=== PATIENT | female | born 1940 | race Caucasian/White ===

== ENCOUNTER → 2019-03-18 | Outpatient (CLI) | payer MEDICARE ==
[2019-03-18 14:13] LABS: ABSOLUTE EOSINOPHILS # (AUTO) 0.2 10^3/uL (0.0-0.6); ABSOLUTE LYMPHOCYTES (AUTO) 1.7 10^3/uL (0.5-4.7); ABSOLUTE MONOCYTES (AUTO) 0.5 10^3/uL (0.1-1.4); ABSOLUTE NEUT (AUTO) 3.8 10^3/uL (1.7-8.2); BASOPHILS % (AUTO) 0.8 % (0-2); EOSINOPHILS % (AUTO) 3.2 % (0-6); HEMATOCRIT 35.7 % (36.0-47.0); HEMOGLOBIN 11.9 g/dL (12.0-15.5); LYMPHOCYTES % (AUTO) 27.6 % (13-45); MEAN CORPUSCULAR HEMOGLOBIN 29.1 pg (27.0-33.4); MEAN CORPUSCULAR HGB CONC 33.3 g/dL (32.0-36.0); MEAN CORPUSCULAR VOLUME 87 fl (80-97); PLATELET COUNT 275 10^3/uL (150-450); RED BLOOD COUNT 4.09 10^6/uL (3.72-5.28); RED CELL DISTRIBUTION WIDTH 15.6 % (11.5-14.0); SEGMENTED NEUTROPHILS % (AUTO) 60.4 % (42-78); TOTAL CELLS COUNTED % (AUTO) 100 %; WHITE BLOOD COUNT 6.3 10^3/uL (4.0-10.5)
[2019-03-18 14:19] LABS: APPEARANCE,URINE CLEAR; BILIRUBIN,URINE NEGATIVE (NEGATIVE); COLOR,URINE YELLOW; GLUCOSE, URINE NEGATIVE (NEGATIVE); KETONES,URINE NEGATIVE (NEGATIVE); LEUKOCYTE ESTERASE,URINE TRACE (NEGATIVE); NITRITE,URINE NEGATIVE (NEGATIVE); PROTEIN,URINE NEGATIVE (NEGATIVE); URINE SPECIFIC GRAVITY 1.015; UROBILINOGEN,URINE NEGATIVE mg/dL (<2.0)
--- NOTE | 2019-03-18 14:47 | RADIOLOGY REPORT (SQ) ---
EXAM DESCRIPTION: CHEST PA/LATERAL COMPLETED DATE/TIME: 03/18/2019 1:48 pm REASON FOR STUDY: PRE-OP COMPARISON: None. EXAM PARAMETERS: NUMBER OF VIEWS: two views TECHNIQUE: Digital Frontal and Lateral radiographic views of the chest acquired. RADIATION DOSE: NA LIMITATIONS: none FINDINGS: LUNGS AND PLEURA: No opacities, masses or pneumothorax. No pleural effusion. MEDIASTINUM AND HILAR STRUCTURES: No masses or contour abnormalities. HEART AND VASCULAR STRUCTURES: The heart size is borderline. There is no pulmonary edema. BONES: Old right rib fractures. HARDWARE: Surgical clips. OTHER: No other significant finding. IMPRESSION: Borderline heart size without pulmonary edema. Old rib fractures. No acute finding. TECHNICAL DOCUMENTATION: JOB ID: [id number] [employer]- All Rights Reserved Reading location - IP/workstation name: [email or web address]
[2019-03-18 14:53] LABS: ANION GAP 11 (5-19); BLOOD UREA NITROGEN 17 mg/dL (7-20); CALCIUM 9.5 mg/dL (8.4-10.2); CARBON DIOXIDE 26 mmol/L (22-30); CHLORIDE 99 mmol/L (98-107); GLUCOSE 87 mg/dL (75-110)
--- NOTE | 2019-03-18 16:00 | EKG REPORT ---
SEVERITY:- ABNORMAL ECG - SINUS RHYTHM PROBABLE LEFT ATRIAL ABNORMALITY BORDERLINE LEFT AXIS DEVIATION NONSPECIFIC T ABNORMALITIES, ANTERIOR LEADS : Confirmed by: Sekou Mcnally MD 18-Mar-2019 15:59:13
== END ==
LOC: OD 12:58
PROVIDERS: ATTEND Orthopaedic Surgery
DX: Z01.810 Encounter for preprocedural cardiovascular examination (principal); Z01.811 Encounter for preprocedural respiratory examination; Z01.812 Encounter for preprocedural laboratory examination; M16.11 Unilateral primary osteoarthritis, right hip
CPT/HCPCS: 36415; 71046; 80048; 81001; 85025; 93005; 93010

== ENCOUNTER 2019-04-15 05:57 | Inpatient (IN) | payer MEDICARE ==
[~2019-04-15 05:57] MED LIST: BUPIVACAINE INJ/PF LIPOSOME/PF 266 MG/20 ML SDV INJ PRN; CEFAZOLIN INJ 1 GM VIAL IV PRN; IBUPROFEN 800 MG in NORMAL SALINE 250 ML IV PRN; LACTATED RINGERS 1000 ML IV PRN; LIDOCAINE 0.5% INJ-PF (5 MG/ML) 50 ML SDV SUBCUT PRN; OXYCODONE HCL SR 10 MG TABLET PO PRN; PANTOPRAZOLE SODIUM 20 MG TABLET.DR PO PRN; VANCOMYCIN HCL 1,000 MG in DEXTROSE 5%-WATER 250 ML IV PRN
[2019-04-15] MEDS ORDERED: CEFAZOLIN 1 GM/D5W RTU 1 GM/50 ML RTUPB IV ONE (09:57)
[2019-04-15] MEDS ORDERED: PANTOPRAZOLE SODIUM 20 MG TABLET.DR PO ONE (09:57)
[2019-04-15] MEDS ORDERED: OXYCODONE HCL SR 10 MG TABLET PO ONE ×2 (09:57→20:40)
[2019-04-15] MEDS ORDERED: BUPIVACAINE INJ/PF LIPOSOME/PF 266 MG/20 ML SDV ONE (11:12)
[2019-04-15] MEDS ORDERED: MIDAZOLAM 2 MG/2 ML INJ ONE (12:02)
[2019-04-15] MEDS ORDERED: PROPOFOL INJ 200 MG/20 ML VIAL IV ONE (12:02)
[2019-04-15] MEDS ORDERED: DEXMEDETOMIDINE INJ 80 MCG/20 ML VIAL IV ONE (12:02)
[2019-04-15] MEDS ORDERED: TRANEXAMIC ACID INJ/PF 1,000 MG/10 ML SDV ONE (12:45)
[2019-04-15] MEDS ORDERED: MEPERIDINE HCL/PF INJ 25 MG/1 ML DISP.SYRIN IV PRN (13:56)
[2019-04-15] MEDS ORDERED: FENTANYL CITRATE INJ/PF 100 MCG/2 ML AMPUL IV PRN ×3 (13:56)
[2019-04-15] MEDS ORDERED: PROMETHAZINE HCL INJ 25 MG/1 ML VIAL IV PRN ×2 (13:56)
[2019-04-15] MEDS ORDERED: DIPHENHYDRAMINE HCL 50 MG/ML VIAL IV PRN ×2 (13:56→14:22)
[2019-04-15] MEDS ORDERED: MORPHINE SULFATE 10 MG/ML INJ IV PRN (13:56)
[2019-04-15] MEDS ORDERED: RINGERS SOLUTION,LACTATED 1,000 ML IV PRN (14:22)
[2019-04-15] MEDS ORDERED: ONDANSETRON 4 MG TAB.RAPDIS PO PRN (14:22)
[2019-04-15] MEDS ORDERED: ZOLPIDEM TARTRATE 5 MG TABLET PO PRN (14:22)
[2019-04-15] MEDS ORDERED: MAG HYDROX/AL HYDROX/SIMETH SUSP 30 ML UDCUP PO PRN (14:22)
[2019-04-15] MEDS ORDERED: ONDANSETRON HCL INJ/PF 4 MG/2 ML SDV IV PRN (14:22)
--- NOTE | 2019-04-15 14:22 | Operative Report ---
Operative Report DATE OF SURGERY: 04/15/19 PREOPERATIVE DIAGNOSIS: Right knee arthritis OPERATION: Right knee arthroplasty SURGEON: SIGRID RODRIGUEZ ANESTHESIA: Spinal TISSUE REMOVED OR ALTERED: Bone to pathology ESTIMATED BLOOD LOSS: [place] 5 PROCEDURE: Implants used: Femur: Alma Delia triathlon size 5 CR femur Tibia: 4 tibia Tibial liner: 16 mm CS insert Patella: 35 mm oval patella Procedure with the patient supine on the operating table the right the limb is prepped and draped in a sterile fashion. The limb was elevated for exsanguination and the tourniquet inflated to 280 torr. A standard midline median parapatellar approach the knee is taken. Access is gained to the femoral canal through the intercondylar notch. Intramedullary alignment instrumentation used to resect 10 mm of distal femur in 5 of valgus. Sizing guide indicated a size 5 femur. Appropriate cutting jig is then used to fashion anterior posterior and chamfer cuts. A trial reduction femurs performed and this is judged to be adequate. Attention was next turned to the tibia. Using an extra medullary alignment system two millimeters was resected off the medial tibial plateau has a varus knee and a large tibial plateau defect medially. This is sized to a size 4 tibia. A trial reduction was now performed with a 5 femur and a 4 tibia using a 16 millimeters spacer. It is full extension and central patellofemoral tracking. The articular surface the patella was next resected using an oscillating saw. All trial implants were removed. Polymethylmethacrylate is mixed and used to cement the above implants in place. On adequate curing the cement excess cement was removed the tourniquet was deflated hemostasis obtained the wound is then closed in layers using interrupted Vicryl followed by maegan. A sterile compressive dressing was applied and the patient returned to recovery room in satisfactory condition.
--- NOTE | 2019-04-15 15:15 | RADIOLOGY REPORT (SQ) ---
EXAM DESCRIPTION: KNEE RIGHT 2 VIEWS COMPLETED DATE/TIME: 04/15/2019 2:56 pm REASON FOR STUDY: Post OP -Long Cassette in PACU M17.11 UNILATERAL PRIMARY OSTEOARTHRITIS, RIGHT KN EE COMPARISON: None. NUMBER OF VIEWS: Two views. TECHNIQUE: AP and lateral radiographic images acquired of the right knee. LIMITATIONS: None. FINDINGS: MINERALIZATION: Normal. BONES: Status post TKA. The hardware is in anatomic alignment. There is no periprosthetic fracture. JOINT: The subcutaneous and intra-articular emphysema are expected in the immediate postoperative per iod. SOFT TISSUES: As above. OTHER: Surgical maegan. IMPRESSION: Uncomplicated right TKA hardware with expected immediate postoperative findings. TECHNICAL DOCUMENTATION: JOB ID: [id number] 2010 [employer]- All Rights Reserved Reading location - IP/workstation name: [email or web address]
[2019-04-15] MEDS ORDERED: TRANEXAMIC ACID INJ/PF 1,000 MG/10 ML SDV IV ONE ×2 (16:00→18:45)
[2019-04-15] MEDS ORDERED: DEXTROSE 40% GEL 15 GM TUBE X 2 PO PRN (17:30)
[2019-04-15] MEDS ORDERED: DEXTROSE 40% GEL 15 GM TUBE PO PRN (17:30)
[2019-04-15] MEDS ORDERED: GLUCAGON,HUMAN RECOMB 1 MG INJ IM PRN (17:30)
[2019-04-15] MEDS ORDERED: DEXTROSE 50%-WATER SYRINGE 25 GM/50 ML DOSE IV PRN (17:30)
[2019-04-15] MEDS ORDERED: DEXTROSE 50%-WATER SYRINGE 12.5 GM/25 ML DOSE IV PRN (17:30)
[2019-04-15] MEDS: SENNOSIDES/DOCUSATE 8.6-50 MG 1 EACH TABLET PO SCH (18:14)
[2019-04-15] MEDS: OXYCODONE HCL SR 10 MG TABLET PO SCH (21:00)
[2019-04-15] MEDS: INSULIN LISPRO 100 UNIT/ML 3 ML VIAL SUBCUT SCH (21:09)
[2019-04-15] MEDS: IBUPROFEN 800 MG in NORMAL SALINE 250 ML IV SCH (21:16)
[2019-04-16] MEDS ORDERED: VANCOMYCIN HCL 1,000 MG in DEXTROSE 5%-WATER 250 ML IV ONE (02:30)
[2019-04-16] MEDS: OXYCODONE HCL IR 5 MG TABLET PO PRN ×2 (04:32→16:05)
[2019-04-16 05:27] LABS: HEMATOCRIT 29.4 % (36.0-47.0); HEMOGLOBIN 9.9 g/dL (12.0-15.5); MEAN CORPUSCULAR HEMOGLOBIN 29.4 pg (27.0-33.4); MEAN CORPUSCULAR HGB CONC 33.7 g/dL (32.0-36.0); MEAN CORPUSCULAR VOLUME 87 fl (80-97); PLATELET COUNT 202 10^3/uL (150-450); RED BLOOD COUNT 3.36 10^6/uL (3.72-5.28); RED CELL DISTRIBUTION WIDTH 14.8 % (11.5-14.0); WHITE BLOOD COUNT 6.5 10^3/uL (4.0-10.5)
[2019-04-16] MEDS: IBUPROFEN 800 MG in NORMAL SALINE 250 ML IV SCH ×3 (05:55→21:32)
[2019-04-16] MEDS: PANTOPRAZOLE SODIUM 40 MG TABLET.DR PO SCH (05:55)
[2019-04-16 05:59] LABS: ANION GAP 7 (5-19); BLOOD UREA NITROGEN 13 mg/dL (7-20); CALCIUM 8.2 mg/dL (8.4-10.2); CARBON DIOXIDE 26 mmol/L (22-30); CHLORIDE 101 mmol/L (98-107); GLUCOSE 111 mg/dL (75-110); POTASSIUM 3.8 mmol/L (3.6-5.0)
--- NOTE | 2019-04-16 07:17 | PDOC PROGRESS REPORT ---
Subjective Progress Note for:: 04/16/19 Reason For Visit: RIGHT KNEE ARTHRITIS 78-year-old white female now postop day 1 status post right knee arthroplasty. Uneventful postoperative course except with complaints of pain. Physical Exam Vital Signs: Temp Pulse Resp BP Pulse Ox 36.7 C 74 16 109/53 L 96 04/15/19 23:27 04/15/19 23:27 04/15/19 23:27 04/15/19 23:27 04/15/19 23:27 Intake & Output 04/15/19 04/16/19 04/17/19 06:59 06:59 06:59 Intake Total 5579 Output Total 3609 Balance 1970 Weight 74.3 kg Physical Exam: Patient is alert, oriented, appropriate. General appearance: PRESENT: mild distress Head exam: PRESENT: normocephalic Respiratory exam: PRESENT: unlabored Cardiovascular exam: PRESENT: RRR GI/Abdominal exam: PRESENT: soft Rectal exam: PRESENT: deferred Musculoskeletal exam: PRESENT: other - Right knee dressing clean dry and intact. Distal neurovascular examination is intact. Results Laboratory Results: 04/16/19 05:14 04/16/19 05:14 04/16/19 04/16/19 05:14 05:14 WBC 6.5 RBC 3.36 L Hgb 9.9 L Hct 29.4 L MCV 87 MCH 29.4 MCHC 33.7 RDW 14.8 H Plt Count 202 Sodium 133.9 L Potassium 3.8 Chloride 101 Carbon Dioxide 26 Anion Gap 7 BUN 13 Creatinine 0.71 Est GFR ( Amer) > 60 Glucose 111 H Calcium 8.2 L Impressions: Knee X-Ray 04/15/19 14:24 IMPRESSION: Uncomplicated right TKA hardware with expected immediate postoperative findings. Status: Imported from PACS Assessment & Plan - Diagnosis (1) Arthritis of right knee Is this a current diagnosis for this admission?: Yes Plan: Mobilize with physical therapy and weightbearing as tolerated basis. Anticipate discharge to [facility] nursing facility on . - Time Time Spent with patient: 15-24 minutes Anticipated discharge: SNF Within: within 48 hours
[2019-04-16] MEDS: INSULIN LISPRO 100 UNIT/ML 3 ML VIAL SUBCUT SCH ×4 (07:40→21:32)
[2019-04-16] MEDS: PRENATAL VITAMIN W DHA CAPSULE PO SCH (09:57)
[2019-04-16] MEDS: OXYCODONE HCL SR 10 MG TABLET PO SCH ×2 (09:57→23:39)
[2019-04-16] MEDS: SENNOSIDES/DOCUSATE 8.6-50 MG 1 EACH TABLET PO SCH ×2 (09:57→17:58)
[2019-04-16] MEDS: HYDROXYCHLOROQUINE SULFATE 200 MG TABLET PO SCH ×2 (09:58→17:59)
[2019-04-16] MEDS ORDERED: (PENDING PHARMACY ID) (Metformin Hcl [Metformin Hcl Er] 500 MG) PO SCH (22:00)
[2019-04-17] MEDS: IBUPROFEN 800 MG in NORMAL SALINE 250 ML IV SCH ×2 (05:54→13:45)
[2019-04-17] MEDS: PANTOPRAZOLE SODIUM 40 MG TABLET.DR PO SCH (05:54)
[2019-04-17 06:10] LABS: HEMATOCRIT 32.5 % (36.0-47.0); HEMOGLOBIN 11.1 g/dL (12.0-15.5); MEAN CORPUSCULAR HEMOGLOBIN 29.6 pg (27.0-33.4); MEAN CORPUSCULAR VOLUME 87 fl (80-97); PLATELET COUNT 226 10^3/uL (150-450); RED BLOOD COUNT 3.74 10^6/uL (3.72-5.28); RED CELL DISTRIBUTION WIDTH 14.8 % (11.5-14.0); WHITE BLOOD COUNT 9.7 10^3/uL (4.0-10.5)
--- NOTE | 2019-04-17 06:42 | PDOC PROGRESS REPORT ---
Subjective Progress Note for:: 04/17/19 Reason For Visit: RIGHT KNEE ARTHRITIS 78-year-old white female now postop day 2 status post right knee arthroplasty. Compressive dressing was removed yesterday. Patient feels much improved following this. Limited progress with physical therapy yesterday. Physical Exam Vital Signs: Temp Pulse Resp BP Pulse Ox 36.8 C 78 12 132/65 H 98 04/17/19 00:24 04/17/19 00:24 04/17/19 00:24 04/17/19 00:24 04/17/19 00:24 Intake & Output 04/15/19 04/16/19 04/17/19 06:59 06:59 06:59 Intake Total 5579 1070 Output Total 3609 Balance 1970 1070 Weight 74.3 kg General appearance: PRESENT: no acute distress, mild distress Head exam: PRESENT: normocephalic Respiratory exam: PRESENT: unlabored Cardiovascular exam: PRESENT: RRR GI/Abdominal exam: PRESENT: soft Rectal exam: PRESENT: deferred Extremities exam: PRESENT: other - Right knee OpSite dressing with a small amount of drainage which is old. Patient is able to demonstrate a state straight leg raise today independently against gravity. Neurological exam: PRESENT: alert, awake, oriented to person, oriented to place, oriented to time, oriented to situation. ABSENT: motor sensory deficit Psychiatric exam: PRESENT: appropriate affect, normal mood. ABSENT: homicidal ideation, suicidal ideation Skin exam: PRESENT: dry, intact, warm. ABSENT: cyanosis, rash Results Laboratory Results: 04/17/19 05:33 04/16/19 05:14 04/17/19 05:33 WBC 9.7 RBC 3.74 Hgb 11.1 L Hct 32.5 L MCV 87 MCH 29.6 MCHC 34.0 RDW 14.8 H Plt Count 226 Impressions: Knee X-Ray 04/15/19 14:24 IMPRESSION: Uncomplicated right TKA hardware with expected immediate postoperative findings. Status: Imported from PACS Assessment & Plan - Diagnosis (1) Arthritis of right knee Is this a current diagnosis for this admission?: Yes Plan: Continue physical therapy for weightbearing style ambulation as well as range of motion strengthening. Anticipate discharge tomorrow to [facility] for ongoing postoperative rehabilitation. - Time Time Spent with patient: 15-24 minutes Anticipated discharge: SNF Within: when bed available
[2019-04-17] MEDS: INSULIN LISPRO 100 UNIT/ML 3 ML VIAL SUBCUT SCH ×4 (08:28→21:00)
[2019-04-17] MEDS: HYDROXYCHLOROQUINE SULFATE 200 MG TABLET PO SCH ×2 (09:11→17:22)
[2019-04-17] MEDS: SENNOSIDES/DOCUSATE 8.6-50 MG 1 EACH TABLET PO SCH ×2 (09:11→17:23)
[2019-04-17] MEDS: PRENATAL VITAMIN W DHA CAPSULE PO SCH (09:11)
[2019-04-17] MEDS: OXYCODONE HCL SR 10 MG TABLET PO SCH (09:16)
[2019-04-17] MEDS: ACETAMINOPHEN 325 MG TABLET PO PRN (18:31)
[2019-04-18] MEDS: PANTOPRAZOLE SODIUM 40 MG TABLET.DR PO SCH (06:23)
--- NOTE | 2019-04-18 06:54 | PDOC TRANSFER SUMMARY ---
Impression - Admit/DC Date/PCP Admission Date/Primary Care Provider: 04/15/19 09:10 JOSH EDMOND NP Discharge Date: 04/18/19 - Discharge Diagnosis (1) Arthritis of right knee Is this a current diagnosis for this admission?: Yes - Additional Information Resuscitation Status: Full Code Discharge Diet: Regular Discharge Activity: Balance Activity w/Rest, No tub bath Referrals: JOSH EDMOND NP [Primary Care Provider] - SIGRID ESCOBAR MD [ACTIVE STAFF] - 05/02/19 9:45 am Home Medications: Alendronate Sodium 70 mg PO Q7D 04/11/19 Cartilage/Collagen/Bor/Hyalur [Joint Health Tablet] 1 tab PO DAILY 04/11/19 Cholecalciferol (Vitamin D3) [Vitamin D3] 2,000 unit PO DAILY 04/11/19 Glucosamine/D3/Boswellia Kathya [Osteo Bi-Flex Caplet] 1 tab PO DAILY 04/11/19 Hydroxychloroquine Sulfate [Plaquenil] 400 mg PO BID 04/11/19 Metformin HCl [Metformin HCl ER] 500 mg PO QHS 04/11/19 History of Present Illiness History of Present Illness: ALICIA LEIVA is a 78 year old female The patient is an 78-year-old white female with progressive bilateral knee pain and functional disability secondary to a varus knee arthritis. Right knee is more problematic than the left from a functional standpoint. She is admitted for elective right knee arthroplasty. Hospital Course Hospital Course: Patient is admitted through the operating room where she undergoes uncomplicated right knee arthroplasty. She was returned to the floor in satisfactory condition. Initially the patient makes limited progress with physical therapy which in retrospect may have been adversely influenced by the use of OxyContin. Once the patient identified that she had issues with OxyContin this was stopped and her cooperation and efforts with physical therapy have dramatically increased. Compressive dressing is removed on the first postoperative morning. The underlying OpSite dressing remains clean dry and intact. There is minimal pedal edema. Distal neurovascular examination is intact. Physical Exam Vital Signs: Temp Pulse Resp BP Pulse Ox 36.7 C 81 16 135/64 H 99 04/18/19 00:18 04/18/19 00:18 04/18/19 00:18 04/18/19 00:18 04/18/19 00:18 Intake & Output 04/16/19 04/17/19 04/18/19 06:59 06:59 06:59 Intake Total 5579 1320 600 Output Total 3609 Balance 1970 1320 600 Weight 74.3 kg 74.7 kg 70 kg General appearance: PRESENT: no acute distress Head exam: PRESENT: normocephalic Respiratory exam: PRESENT: unlabored Cardiovascular exam: PRESENT: RRR Pulses: PRESENT: +1 pedal pulses bilateral GI/Abdominal exam: PRESENT: soft Rectal exam: PRESENT: deferred Musculoskeletal exam: PRESENT: other - Right knee OpSite dressing clean dry and intact. Minimal pedal edema. Distal neurovascular examination is intact. Neurological exam: PRESENT: alert, awake, oriented to person, oriented to place, oriented to time, oriented to situation. ABSENT: motor sensory deficit Psychiatric exam: PRESENT: appropriate affect, normal mood. ABSENT: homicidal ideation, suicidal ideation Skin exam: PRESENT: dry, intact, warm. ABSENT: cyanosis, rash Results Laboratory Results: WBC 9.7 10^3/uL (4.0-10.5) 04/17/19 05:33 RBC 3.74 10^6/uL (3.72-5.28) 04/17/19 05:33 Hgb 11.1 g/dL (12.0-15.5) L 04/17/19 05:33 Hct 32.5 % (36.0-47.0) L 04/17/19 05:33 MCV 87 fl (80-97) 04/17/19 05:33 MCH 29.6 pg (27.0-33.4) 04/17/19 05:33 MCHC 34.0 g/dL (32.0-36.0) 04/17/19 05:33 RDW 14.8 % (11.5-14.0) H 04/17/19 05:33 Plt Count 226 10^3/uL (150-450) 04/17/19 05:33 Sodium 133.9 mmol/L (137-145) L 04/16/19 05:14 Potassium 3.8 mmol/L (3.6-5.0) 04/16/19 05:14 Chloride 101 mmol/L (98-107) 04/16/19 05:14 Carbon Dioxide 26 mmol/L (22-30) 04/16/19 05:14 Anion Gap 7 (5-19) 04/16/19 05:14 BUN 13 mg/dL (7-20) 04/16/19 05:14 Creatinine 0.71 mg/dL (0.52-1.25) 04/16/19 05:14 Est GFR ( Amer) > 60 (>60) 04/16/19 05:14 Est GFR (MDRD) Non-Af > 60 (>60) 04/16/19 05:14 Glucose 111 mg/dL (75-110) H 04/16/19 05:14 POC Glucose 116 mg/dL (70-110) H 04/16/19 06:31 Calcium 8.2 mg/dL (8.4-10.2) L 04/16/19 05:14 Impressions: Knee X-Ray 04/15/19 14:24 IMPRESSION: Uncomplicated right TKA hardware with expected immediate postoperative findings. Plan Plan of Treatment: Discharge to a alf facility and a weightbearing as tolerated basis for postoperative rehabilitation. Return to see Dr. Escobar and [facility] for surgery in 2 weeks for staple removal. Time Spent: Less than 30 Minutes Stroke Is this a Stroke Patient?: No Stroke Pt being discharged on Anti-thrombolytic therapy?: Yes Acute Heart Failure - Is this a Heart Failure Patient?: No
[2019-04-18 06:55] LABS: HEMATOCRIT 28.5 % (36.0-47.0); HEMOGLOBIN 9.7 g/dL (12.0-15.5); MEAN CORPUSCULAR HEMOGLOBIN 29.6 pg (27.0-33.4); MEAN CORPUSCULAR HGB CONC 33.9 g/dL (32.0-36.0); MEAN CORPUSCULAR VOLUME 87 fl (80-97); PLATELET COUNT 207 10^3/uL (150-450); RED BLOOD COUNT 3.27 10^6/uL (3.72-5.28); RED CELL DISTRIBUTION WIDTH 14.6 % (11.5-14.0); WHITE BLOOD COUNT 6.7 10^3/uL (4.0-10.5)
[2019-04-18] MEDS: INSULIN LISPRO 100 UNIT/ML 3 ML VIAL SUBCUT SCH ×2 (07:28→11:41)
[2019-04-18 08:28] VITALS: BP 134/56
[2019-04-18] MEDS: ACETAMINOPHEN 325 MG TABLET PO PRN (10:16)
[2019-04-18] MEDS: HYDROXYCHLOROQUINE SULFATE 200 MG TABLET PO SCH (10:17)
[2019-04-18] MEDS: PRENATAL VITAMIN W DHA CAPSULE PO SCH (10:17)
[2019-04-18] MEDS: SENNOSIDES/DOCUSATE 8.6-50 MG 1 EACH TABLET PO SCH (10:17)
== END 2019-04-18 13:19 | DRG 470 ==
LOC: INOR 09:10 → 4S 17:01
PROVIDERS: ADMIT Orthopaedic Surgery; ATTEND Orthopaedic Surgery
PROC: 0SRC0J9 Replacement of Right Knee Joint with Synthetic Substitute, Cemented, Open Approach (ICD-10-PCS; principal; 2019-04-15 11:15)
DX: M17.11 Unilateral primary osteoarthritis, right knee (principal); M32.9 Systemic lupus erythematosus, unspecified; M81.0 Age-related osteoporosis without current pathological fracture; Z79.84 Long term (current) use of oral hypoglycemic drugs; Z91.040 Latex allergy status; Z87.891 Personal history of nicotine dependence; Z85.3 Personal history of malignant neoplasm of breast; Z79.899 Other long term (current) drug therapy
CPT/HCPCS: 01402; 36415; 80048; 82962; 85027; 88305; 88311; 94799; C1713; C1776; C9290; J0690; J1741; J2250; J2704; J3370; J3490; J7050; J7060; J7120; L3908

== ENCOUNTER 2019-08-19 06:44 | Inpatient (IN) | payer MEDICARE ==
[2019-08-12 08:52] LABS: ABSOLUTE EOSINOPHILS # (AUTO) 0.2 10^3/uL (0.0-0.6); ABSOLUTE LYMPHOCYTES (AUTO) 1.3 10^3/uL (0.5-4.7); ABSOLUTE MONOCYTES (AUTO) 0.4 10^3/uL (0.1-1.4); BASOPHILS % (AUTO) 0.7 % (0-2); HEMATOCRIT 34.4 % (36.0-47.0); HEMOGLOBIN 11.1 g/dL (12.0-15.5); LYMPHOCYTES % (AUTO) 26.3 % (13-45); MEAN CORPUSCULAR HEMOGLOBIN 27.4 pg (27.0-33.4); MEAN CORPUSCULAR HGB CONC 32.3 g/dL (32.0-36.0); MEAN CORPUSCULAR VOLUME 85 fl (80-97); MONOCYTES % (AUTO) 7.4 % (3-13); PLATELET COUNT 271 10^3/uL (150-450); RED BLOOD COUNT 4.06 10^6/uL (3.72-5.28); RED CELL DISTRIBUTION WIDTH 15.2 % (11.5-14.0); SEGMENTED NEUTROPHILS % (AUTO) 61.6 % (42-78); TOTAL CELLS COUNTED % (AUTO) 100 %; WHITE BLOOD COUNT 4.8 10^3/uL (4.0-10.5)
[2019-08-12 09:07] LABS: ANION GAP 8 (5-19); BLOOD UREA NITROGEN 17 mg/dL (7-20); CARBON DIOXIDE 26 mmol/L (22-30); CHLORIDE 101 mmol/L (98-107); GLUCOSE 158 mg/dL (75-110); POTASSIUM 3.9 mmol/L (3.6-5.0)
[2019-08-12 09:20] LABS: APPEARANCE,URINE CLEAR; BILIRUBIN,URINE NEGATIVE (NEGATIVE); COLOR,URINE YELLOW; GLUCOSE, URINE NEGATIVE (NEGATIVE); KETONES,URINE NEGATIVE (NEGATIVE); LEUKOCYTE ESTERASE,URINE SMALL (NEGATIVE); NITRITE,URINE NEGATIVE (NEGATIVE); PROTEIN,URINE NEGATIVE (NEGATIVE); URINE SPECIFIC GRAVITY 1.014; UROBILINOGEN,URINE NEGATIVE mg/dL (<2.0)
--- NOTE | 2019-08-12 11:44 | RADIOLOGY REPORT (SQ) ---
EXAM DESCRIPTION: CHEST PA/LATERAL IMAGES COMPLETED DATE/TIME: 08/12/2019 10:01 am REASON FOR STUDY: PRE-OP COMPARISON: 03/18/2019 EXAM PARAMETERS: NUMBER OF VIEWS: two views TECHNIQUE: Digital Frontal and Lateral radiographic views of the chest acquired. RADIATION DOSE: NA LIMITATIONS: none FINDINGS: LUNGS AND PLEURA: No opacities, masses or pneumothorax. No pleural effusion. Emphysematou s change with increased AP diameter and flattening of the hemidiaphragm. MEDIASTINUM AND HILAR STRUCTURES: No masses or contour abnormalities. HEART AND VASCULAR STRUCTURES: Enlarged cardiac silhouette, stable. Atherosclerotic thoracic aorta. BONES: No acute findings. No suspicious osseous lesions. Chronic right-sided posterolateral rib fra ctures, stable. HARDWARE: Surgical clips overlie right chest. OTHER: No other significant finding. IMPRESSION: Stable enlarged cardiac silhouette without other evidence of acute intrathoracic process . TECHNICAL DOCUMENTATION: JOB ID: [id number] 2010 [employer]- All Rights Reserved Reading location - IP/workstation name: [email or web address]
--- NOTE | 2019-08-12 11:55 | EKG REPORT ---
SEVERITY:- ABNORMAL ECG - SINUS RHYTHM PROBABLE LEFT ATRIAL ABNORMALITY BORDERLINE LEFT AXIS DEVIATION NONSPECIFIC T ABNORMALITIES, ANTERIOR LEADS : Confirmed by: Sekou Mcnally MD 12-Aug-2019 11:54:25
[~2019-08-19 06:44] MED LIST changes: +DEXAMETHASONE SOD PHOSPHATE INJ 4 MG/1 ML VIAL ONE; +FENTANYL CITRATE INJ/PF 100 MCG/2 ML AMPUL ONE; +MIDAZOLAM 2 MG/2 ML INJ ONE; +ONDANSETRON HCL INJ/PF 4 MG/2 ML SDV ONE; +PROPOFOL INJ 200 MG/20 ML VIAL IV ONE; +TRANEXAMIC ACID INJ/PF 1,000 MG/10 ML SDV ONE
[2019-08-19] MEDS ORDERED: CEFAZOLIN 1 GM/D5W RTU 1 GM/50 ML RTUPB IV ONE (07:07)
[2019-08-19] MEDS ORDERED: BUPIVACAINE HCL 0.25% /EPINEPHRINE INJ/PF 30 ML SDV ONE (07:25)
[2019-08-19] MEDS ORDERED: TRANEXAMIC ACID INJ/PF 1,000 MG/10 ML SDV ONE (09:27)
--- NOTE | 2019-08-19 10:25 | Operative Report ---
Operative Report DATE OF SURGERY: 08/19/19 PREOPERATIVE DIAGNOSIS: Left knee arthritis OPERATION: Left knee arthroplasty SURGEON: SIGRID RODRIGUEZ ANESTHESIA: Spinal TISSUE REMOVED OR ALTERED: Bone to pathology ESTIMATED BLOOD LOSS: 50 PROCEDURE: Implants used: Femur: Alma Delia triathlon size 5 CR femur Tibia: 4 tibia Tibial liner: 9 mm CS insert Patella: 35 mm oval patella Procedure with the patient supine on the operating table the left the limb is prepped and draped in a sterile fashion. The limb was elevated for exsanguination and the tourniquet inflated to 280 torr. A standard midline median parapatellar approach the knee is taken. Access is gained to the femoral canal through the intercondylar notch. Intramedullary alignment instrumentation used to resect 8 mm of distal femur in 5 of valgus. Sizing guide indicated a size 5 femur. Appropriate cutting jig is then used to fashion anterior posterior and chamfer cuts. A trial reduction femurs performed and this is judged to be adequate. Attention was next turned to the tibia. Using an extra medullary alignment system two millimeters was resected off the medial tibial plateau. This is sized to a size 4 tibia. A trial reduction was now performed with a 5 femur and a 4 tibia using a 9 millimeters spacer. It is full extension and central patellofemoral tracking. The articular surface the patella was next resected using an oscillating saw. All trial implants were removed. Polymethylmethacrylate is mixed and used to cement the above implants in place. On adequate curing the cement excess cement was removed the tourniquet was deflated hemostasis obtained the wound is then closed in layers using interrupted Vicryl followed by maegan. A sterile compressive dressing was applied and the patient returned to recovery room in satisfactory condition.
[2019-08-19] MEDS ORDERED: RINGERS SOLUTION,LACTATED 1,000 ML IV PRN (10:26)
[2019-08-19] MEDS ORDERED: OXYCODONE HCL IR 5 MG TABLET PO PRN (10:26)
[2019-08-19] MEDS ORDERED: ACETAMINOPHEN 325 MG TABLET PO PRN (10:26)
[2019-08-19] MEDS ORDERED: MAG HYDROX/AL HYDROX/SIMETH SUSP 30 ML UDCUP PO PRN (10:26)
[2019-08-19] MEDS ORDERED: ONDANSETRON 4 MG TAB.RAPDIS PO PRN (10:26)
[2019-08-19] MEDS ORDERED: DIPHENHYDRAMINE HCL 50 MG/ML VIAL IV PRN (10:26)
[2019-08-19] MEDS ORDERED: TRANEXAMIC ACID INJ/PF 1,000 MG/10 ML SDV IV ONE (10:26)
[2019-08-19] MEDS ORDERED: (PENDING PHARMACY ID) (Alendronate Sodium [Alendronate Sodium] 70 MG) PO SCH (10:30)
[2019-08-19] MEDS ORDERED: BUPIVACAINE HCL 0.25 % INJ/PF (2.5 MG/1 ML) 30 ML VIAL ONE (10:45)
--- NOTE | 2019-08-19 12:50 | RADIOLOGY REPORT (SQ) ---
EXAM DESCRIPTION: KNEE LEFT 2 VIEWS IMAGES COMPLETED DATE/TIME: 08/19/2019 11:27 am REASON FOR STUDY: Post OP -Long Cassette in PACU M17.12 UNILATERAL PRIMARY OSTEOARTHRITIS, LEFT KNE E COMPARISON: None. NUMBER OF VIEWS: Two views. TECHNIQUE: AP and lateral radiographic images acquired of the left knee. LIMITATIONS: None. FINDINGS: Postoperative images show a left knee arthroplasty in good position. IMPRESSION: Left knee arthroplasty. Refer to operative note for further information. COMMENT: A right marker is seen on each image TECHNICAL DOCUMENTATION: JOB ID: [id number] 2010 [employer]- All Rights Reserved Reading location - IP/workstation name: [email or web address]
[2019-08-19] MEDS: IBUPROFEN 800 MG in NORMAL SALINE 250 ML IV SCH ×2 (14:16→21:59)
[2019-08-19] MEDS: SENNOSIDES/DOCUSATE 8.6-50 MG 1 EACH TABLET PO SCH (17:15)
[2019-08-19] MEDS: HYDROXYCHLOROQUINE SULFATE 200 MG TABLET PO SCH (17:15)
[2019-08-19] MEDS ORDERED: VANCOMYCIN HCL 1,000 MG in DEXTROSE 5%-WATER 250 ML IV ONE (22:26)
[2019-08-20 05:40] LABS: HEMOGLOBIN 8.3 g/dL (12.0-15.5); MEAN CORPUSCULAR HEMOGLOBIN 27.8 pg (27.0-33.4); MEAN CORPUSCULAR HGB CONC 33.3 g/dL (32.0-36.0); MEAN CORPUSCULAR VOLUME 84 fl (80-97); PLATELET COUNT 209 10^3/uL (150-450); RED BLOOD COUNT 2.99 10^6/uL (3.72-5.28); RED CELL DISTRIBUTION WIDTH 15.2 % (11.5-14.0); WHITE BLOOD COUNT 7.4 10^3/uL (4.0-10.5)
[2019-08-20 06:00] LABS: ANION GAP 6 (5-19); BLOOD UREA NITROGEN 20 mg/dL (7-20); CALCIUM 8.5 mg/dL (8.4-10.2); CARBON DIOXIDE 26 mmol/L (22-30); CHLORIDE 102 mmol/L (98-107); GLUCOSE 104 mg/dL (75-110); POTASSIUM 3.9 mmol/L (3.6-5.0)
[2019-08-20] MEDS ORDERED: PANTOPRAZOLE SODIUM 40 MG TABLET.DR PO SCH (06:00)
[2019-08-20] MEDS: IBUPROFEN 800 MG in NORMAL SALINE 250 ML IV SCH (06:29)
--- NOTE | 2019-08-20 06:55 | PDOC DISCHARGE SUMMARY ---
Impression - Admit/DC Date/PCP Admission Date/Primary Care Provider: 08/19/19 06:44 JOSH EDMOND NP Discharge Date: 08/20/19 - Discharge Diagnosis (1) Arthritis of left knee Is this a current diagnosis for this admission?: Yes - Additional Information Resuscitation Status: Full Code Discharge Diet: Regular Discharge Activity: Balance Activity w/Rest, No tub bath Referrals: SIGRID ESCOBAR MD [ACTIVE STAFF] - 08/29/19 2:15 pm Home Medications: Alendronate Sodium 70 mg PO FR@1000 04/11/19 Cholecalciferol (Vitamin D3) [Vitamin D3] 2,000 unit PO DAILY 04/11/19 Hydroxychloroquine Sulfate [Plaquenil] 200 mg PO BID 04/11/19 Metformin HCl [Glucophage 500 mg Tablet] 500 mg PO DAILY 08/19/19 History of Present Illiness History of Present Illness: ALICIA LEIVA is a 79 year old female 79-year-old white female with progressive left knee pain and functional disability second osteoarthritis. Patient admitted for elective left knee arthroplasty. Hospital Course Hospital Course: Patient is admitted through the operating where she undergoes an uncomplicated left knee arthroplasty. She is returned to the floor in satisfactory addition. She makes excellent progress with physical therapy on the day of surgery. Dressing is changed on the first postoperative morning with a fair amount of venous ooze from the wound requiring reinforcement overnight. Patient is made enough progress with physical therapy the discharge home in first postoperative day is reasonable. Physical Exam Vital Signs: Temp Pulse Resp BP Pulse Ox 36.7 C 78 16 131/63 H 96 08/20/19 01:24 08/20/19 01:24 08/20/19 01:24 08/20/19 01:24 08/20/19 01:24 Intake & Output 08/18/19 08/19/19 08/20/19 06:59 06:59 06:59 Intake Total 4959 Output Total 3079 Balance 1880 Weight 65.32 kg General appearance: PRESENT: no acute distress Head exam: PRESENT: normocephalic Respiratory exam: PRESENT: unlabored Cardiovascular exam: PRESENT: RRR Pulses: PRESENT: +1 pedal pulses bilateral Vascular exam: PRESENT: normal capillary refill GI/Abdominal exam: PRESENT: soft Rectal exam: PRESENT: deferred Musculoskeletal exam: PRESENT: other - Knee dressing is on the morning of surgery. At the time of discharge is clean dry and intact. Results Laboratory Results: WBC 7.4 10^3/uL (4.0-10.5) 08/20/19 05:15 RBC 2.99 10^6/uL (3.72-5.28) L 08/20/19 05:15 Hgb 8.3 g/dL (12.0-15.5) L 08/20/19 05:15 Hct 25.0 % (36.0-47.0) L 08/20/19 05:15 MCV 84 fl (80-97) 08/20/19 05:15 MCH 27.8 pg (27.0-33.4) 08/20/19 05:15 MCHC 33.3 g/dL (32.0-36.0) 08/20/19 05:15 RDW 15.2 % (11.5-14.0) H 08/20/19 05:15 Plt Count 209 10^3/uL (150-450) 08/20/19 05:15 Lymph % (Auto) 26.3 % (13-45) 08/12/19 08:29 Tyrrell % (Auto) 7.4 % (3-13) 08/12/19 08:29 Eos % (Auto) 4.0 % (0-6) 08/12/19 08:29 Baso % (Auto) 0.7 % (0-2) 08/12/19 08:29 Absolute Neuts (auto) 3.0 10^3/uL (1.7-8.2) 08/12/19 08:29 Absolute Lymphs (auto) 1.3 10^3/uL (0.5-4.7) 08/12/19 08:29 Absolute Monos (auto) 0.4 10^3/uL (0.1-1.4) 08/12/19 08:29 Absolute Eos (auto) 0.2 10^3/uL (0.0-0.6) 08/12/19 08:29 Absolute Basos (auto) 0.0 10^3/uL (0.0-0.2) 08/12/19 08:29 Seg Neutrophils % 61.6 % (42-78) 08/12/19 08:29 Sodium 133.7 mmol/L (137-145) L 08/20/19 05:15 Potassium 3.9 mmol/L (3.6-5.0) 08/20/19 05:15 Chloride 102 mmol/L (98-107) 08/20/19 05:15 Carbon Dioxide 26 mmol/L (22-30) 08/20/19 05:15 Anion Gap 6 (5-19) 08/20/19 05:15 BUN 20 mg/dL (7-20) 08/20/19 05:15 Creatinine 0.88 mg/dL (0.52-1.25) 08/20/19 05:15 Est GFR ( Amer) > 60 (>60) 08/20/19 05:15 Est GFR (MDRD) Non-Af > 60 (>60) 08/20/19 05:15 Glucose 104 mg/dL (75-110) 08/20/19 05:15 Calcium 8.5 mg/dL (8.4-10.2) 08/20/19 05:15 Urine Color YELLOW 08/12/19 08:40 Urine Appearance CLEAR 08/12/19 08:40 Urine pH 6.0 (5.0-9.0) 08/12/19 08:40 Ur Specific [place] 1.014 08/12/19 08:40 Urine Protein NEGATIVE mg/dL (NEGATIVE) 08/12/19 08:40 Urine Glucose (UA) NEGATIVE mg/dL (NEGATIVE) 08/12/19 08:40 Urine Ketones NEGATIVE mg/dL (NEGATIVE) 08/12/19 08:40 Urine Blood NEGATIVE (NEGATIVE) 08/12/19 08:40 Urine Nitrite NEGATIVE (NEGATIVE) 08/12/19 08:40 Urine Bilirubin NEGATIVE (NEGATIVE) 08/12/19 08:40 Urine Urobilinogen NEGATIVE mg/dL (<2.0) 08/12/19 08:40 Ur Leukocyte Esterase SMALL (NEGATIVE) H 08/12/19 08:40 Urine WBC (Auto) 2 /HPF 08/12/19 08:40 Urine RBC (Auto) 2 /HPF 08/12/19 08:40 Squamous Epi Cells Auto 2 /HPF 08/12/19 08:40 Urine Mucus (Auto) OCC /LPF 08/12/19 08:40 Urine Ascorbic Acid NEGATIVE (NEGATIVE) 08/12/19 08:40 COVID-19 Source NASOPHARYNGEAL 08/12/19 08:23 COVID-19 (KATE) NOT DETECTED 08/12/19 08:23 Blood Type O POSITIVE 08/19/19 07:47 Antibody Screen NEGATIVE 08/19/19 07:47 Impressions: Chest X-Ray 08/12/19 09:53 IMPRESSION: Stable enlarged cardiac silhouette without other evidence of acute intrathoracic process. Knee X-Ray 08/19/19 10:27 IMPRESSION: Left knee arthroplasty. Refer to operative note for further info rmation. Plan Plan of Treatment: Patient to be discharged on a weightbearing as tolerated basis with home health services and DME. Follow-up with Dr. Escobar and [facility] for surgery in 2 weeks for staple removal. Time Spent: Less than 30 Minutes Stroke Is this a Stroke Patient?: No Stroke Pt being discharged on Anti-thrombolytic therapy?: Yes Acute Heart Failure - Is this a Heart Failure Patient?: No
[2019-08-20] MEDS ORDERED: PRENATAL VITAMIN W DHA CAPSULE PO SCH (10:00)
[2019-08-20] MEDS: SENNOSIDES/DOCUSATE 8.6-50 MG 1 EACH TABLET PO SCH (10:11)
[2019-08-20] MEDS: HYDROXYCHLOROQUINE SULFATE 200 MG TABLET PO SCH ×2 (10:11→10:18)
[2019-08-20 15:49] VITALS: BP 120/51
== END 2019-08-20 17:15 | disposition home health service (06) | DRG 470 ==
LOC: INOR 06:44 → 4S 11:35
PROVIDERS: ADMIT Orthopaedic Surgery; ATTEND Orthopaedic Surgery
PROC: 0SRD0J9 Replacement of Left Knee Joint with Synthetic Substitute, Cemented, Open Approach (ICD-10-PCS; principal; 2019-08-19 09:00)
DX: M17.12 Unilateral primary osteoarthritis, left knee (principal); L93.0 Discoid lupus erythematosus; Z91.040 Latex allergy status; Z03.818 Encounter for observation for suspected exposure to other biological agents ruled out
CPT/HCPCS: 01402; 36415; 64447; 71046; 76942; 80048; 81001; 85025; 85027; 86850; 86900; 86901; 87635; 88305; 88311; 93005; 93010; 94799; C1713; C1776; C9803; J0690; J1100; J1741; J2250; J2405; J2704; J3010; J3370; J3490; J7050; J7060; J7120